=== PATIENT | male | born 1985 | race Hispanic/Latino ===

== ENCOUNTER → 2016-03-30 | Outpatient (CLI) | payer OTHER ==
--- NOTE | 2016-03-30 10:57 | REP ---
Clinical: Hammertoe deformity. Technique: AP, lateral, bilateral oblique views. Findings: The osseous structures and joint spaces are intact. Hallux valgus deformity. The There is no evidence for acute fracture or dislocation. Surrounding soft tissues are unremarkable. No subcutaneous emphysema or radiodense foreign body. Impression: No acute fracture or dislocation. Signed by Luis Mesa MD 03/30/2016 10:48 A
== END ==
LOC: M RAD 09:31
PROVIDERS: ATTEND Surgery
DX: M20.41 Other hammer toe(s) (acquired), right foot (principal); M20.11 Hallux valgus (acquired), right foot

== ENCOUNTER 2016-11-16 08:56 | Day surgery (SDC) | payer OTHER ==
[~2016-11-16] VITALS: Ht 182.9 cm; Wt 90.7 kg
[2016-11-16] MEDS ORDERED: LR 1,000 ML IV SCH (09:15)
[2016-11-16] MEDS ORDERED: LIDOCAINE 2% MDV 20 ML VIAL As Ordered ONE (11:31)
[2016-11-16] MEDS ORDERED: NEOSPORIN GU IRRIG 20 ML VIAL As Ordered ONE (11:32)
[2016-11-16] MEDS ORDERED: BACITRACIN PWD 50,000 UNITS VIAL As Ordered ONE (11:32)
[2016-11-16] MEDS ORDERED: BUPIVACAINE HCL 0.5% 30 ML VIAL As Ordered ONE (11:32)
[2016-11-16] MEDS ORDERED: dexameTHASONE 4 MG/ML 1ML VIAL (J1100) As Ordered ONE (11:32)
[2016-11-16] MEDS ORDERED: fentaNYL 100 MCG/2 ML INJECTION (J3010) As Ordered ONE (11:47)
[2016-11-16] MEDS ORDERED: MIDAZOLAM INJ 2 MG/2 ML VIAL (J2250) As Ordered ONE ×2 (11:47→12:32)
[2016-11-16] MEDS ORDERED: PROPOFOL 200 MG/20 ML VIAL As Ordered ONE ×4 (12:18→13:26)
[2016-11-16] MEDS ORDERED: LIDOCAINE 2% INJ 100 MG/5 ML SDV (FOR ANES.) As Ordered ONE (12:18)
[2016-11-16] MEDS ORDERED: KETOROLAC 60 MG/2 ML VIAL (J1885) As Ordered ONE (12:18)
[2016-11-16] MEDS ORDERED: ePHEDrine SULFATE 25 MG/5 ML(5MG/ML) SYRINGE As Ordered ONE (13:18)
[2016-11-16] MEDS ORDERED: PHENYLephrine HCL 500 MCG/5 ML (100MCG/ML) SYRINGE (J2370) As Ordered ONE (13:22)
--- NOTE | 2016-11-16 15:11 | REP ---
RIGHT FOOT: Three portable views of the right foot are performed. Metallic pin is seen extending through the phalanges of the second digit as well as phalanges of the third, fourth and fifth digits. Metallic screw is seen in distal aspect of the third and fifth metatarsals. The osseous structures appear well aligned. Signed by Simone Curry MD 11/16/2016 04:14 P
[2016-11-16 16:00] VITALS: BP 125/66
--- NOTE | 2016-11-16 17:38 | ECGEPIP ---
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
--- NOTE | 2016-11-22 13:35 | RO ---
DATE OF PROCEDURE: 11/16/2016 PREPROCEDURE DIAGNOSES: Tailor's bunion deformity right foot, long third metatarsal right foot, hammer toe deformity second toe right foot, hammer toe deformity third toe right foot, hammer toe deformity fourth toe right foot, hammer toe deformity fifth toe right foot. POSTPROCEDURE DIAGNOSES: PROCEDURE: 1. Tailor's bunionectomy with distal V osteotomy with internal screw fixation 2.5 mm x 18 mm x 1. 2. Shortening third metatarsal osteotomy internal screw fixation 2.5 mm x 14 mm x 1. 3. Proximal interphalangeal joint fusion with external wire fixation second toe right foot. 4. Proximal interphalangeal joint fusion with external wire fixation third toe right foot. 5. Proximal interphalangeal joint fusion fourth toe with external wire fixation right foot. 6. Distal interphalangeal joint arthroplasty fifth toe right foot. SURGEON: Dr. Ezekiel Hankins DPM MOTOR ROUTE CARRIER: None. ANESTHESIA: Local MAC. ESTIMATED BLOOD LOSS: Less than 5 mL. DRAINS UTILIZED: None. HARDWARE UTILIZED: Lino Dart-Fire 2.5 x 14 mm and a 2.5 x 16 mm screw and K wire 0.35 x 2 and 0.45 x 2. HEMOSTASIS: Ankle pneumatic tourniquet at 200 mmHg for 100 minutes. DESCRIPTION OF OPERATION: On 11/16/2016, this 31-year-old male was taken from his hospital room to the operating room and placed on the operating room table in the supine position. Following the induction of IV sedation and local and regional anesthesia, the right lower extremity was prepped and draped in the usual aseptic manner. Ankle pneumatic tourniquet was rapidly inflated to 200 mmHg for the purpose of intraoperative hemostasis. Esmarch bandage removed. Right lower extremity was returned to the operating room table. Sterile draping was completed and the following procedure was performed: TAILOR'S BUNIONECTOMY WITH DISTAL V OSTEOTOMY WITH INTERNAL SCREW FIXATION RIGHT FOOT: Attention was directed to the patient's fifth toe where there was noted to be a Tailor's bunion deformity. At this time, an incision was made on the lateral surface of the foot measuring approximately 5 cm. The incision was deepened to subcutaneous tissues and all coursing venous tributaries were identified, underscored, clamped, cut, ligated and electrocoagulated as necessary. A linear capsulotomy was performed in the same plane as the original skin incision. The capsule and periosteal structures were then dissected free in one continuous layer dorsally, medially and laterally thus creating a capsular periosteal type envelope. Utilizing a power saw, an osteotomy was performed of the distal metaphysis of the fifth metatarsal with a long plantar and short dorsal wing. The capital fragment was transposed approximately 40% of the width of the shaft of the fifth metatarsal and utilizing a 2.5 x 18 mm Dart-Fire cannulated screw, the osteotomy was stabilized. It was stable in all three cardinal planes. A redundant cortical spike was then osteotomized from dorsal to plantar through and through and extirpated from the wound in toto. Lateral surface was rasped to smooth contour. The wound was flushed with copious amounts of dilute bacitracin, neomycin and polymyxin B solution. Attention was then directed towards closure where the capsular structures were coapted and maintained using #2-0 Monocryl in a simple interrupted type fashion. Subcutaneous tissues were coapted and maintained using #4-0 Monocryl in simple interrupted type fashion. Skin incision coapted and maintained using #5-0 Monocryl in continuous subcuticular type fashion. Attention was then directed to the third metatarsal where the following procedure was performed: SHORTENING THIRD METATARSAL OSTEOTOMY WITH INTERNAL SCREW FIXATION 2.5 MM X 14 MM X 1 RIGHT FOOT: Attention was directed to the patient's right foot and an incision was placed over the third metatarsal neck. Incision was deepened to the subcutaneous tissues and all coursing venous tributaries were identified, underscored, clamped, cut, ligated and electrocoagulated as necessary. The long and short tendons were then split in a medial and lateral direction. Periosteal incision was placed over the third metatarsal neck and a Yonas osteotomy was performed starting at the articular cartilage of the third metatarsal paralleling the plantar surface of the foot. Capital fragment was shortened approximately 5 mm and fixated with a Dart-Fire 2.5 x 14 mm compression screw. The dorsal redundant spike was then rongeured to even contour and rasped with a hand held rasp. The wound was flushed with copious amounts of dilute bacitracin, neomycin and polymyxin B solution. The capsular structures were coapted and maintained utilizing #2-0 Monocryl in a simple interrupted type fashion. Subcutaneous tissues were coapted and maintained utilizing #4-0 Monocryl in a simple interrupted type fashion. Skin incisions were coapted and maintained utilizing #4-0 Prolene in a simple interrupted and horizontal mattress type fashion. Attention was then directed to the patient's second toe where the following procedure was performed: PROXIMAL INTERPHALANGEAL JOINT FUSION WITH EXTERNAL WIRE FIXATION 0.045 X 1 RIGHT FOOT: Attention was directed to the patient's second toe where there was noted to be hammer toe deformity. At this time, an incision was placed from the base of the second toe to just distal to the proximal interphalangeal joint. Incision was deepened to the subcutaneous tissues. A Z plasty tendon lengthening was then performed at the second toe. Utilizing a power saw, an osteotomy was performed from the level of the anatomical neck of the proximal phalanx from dorsal to plantar through and through. The base of the cartilage to the base of the middle phalanx was then osteotomized from dorsal to plantar through and through. The wound was flushed with copious amounts of dilute bacitracin, neomycin and polymyxin B solution. Utilizing a K wire, wire was driven through the middle and distal phalanx and retrograded into the proximal phalanx. Utilizing a #4-0 braided Nylon loop suture, a four stranded core Luna stitch was placed across the extensor tendon. The wound was again flushed with copious amounts of dilute bacitracin, neomycin and polymyxin B dilution. The skin was coapted and maintained with #4-0 Prolene in simple interrupted and horizontal mattress type fashion. Attention was then directed to patient's third toe of the right foot where the following procedure was performed: PROXIMAL INTERPHALANGEAL JOINT FUSION THIRD TOE RIGHT FOOT: Attention was directed to the patient's third toe of the right foot where the procedure performed on the second toe was now performed on the third toe without variation or deletion, the only exception being that of anatomical location. Attention was then directed to the fourth toe where the following procedure was performed: PROXIMAL INTERPHALANGEAL JOINT FUSION FOURTH TOE RIGHT FOOT WITH EXTERNAL WIRE FIXATION 0.035 x 1 RIGHT FOOT: Attention was directed to the patient's fourth toe of the right foot where the procedure performed on the second toe was now performed on the fourth toe with the following variation: A smaller K wire was utilized, 0.035 x 1. No other variations or deletions. Attention was then directed towards the fifth toe of the left foot where the following procedure was performed: PROXIMAL INTERPHALANGEAL JOINT ARTHROPLASTY WITH EXTERNAL WIRE FIXATION 0.035 X 1 RIGHT FOOT: Attention was directed to the patient's fifth toe of the right foot where the procedure performed on the second toe was now performed on the fifth toe with the following variation: 0.035 K wire was utilized and the cartilage on the base of the middle phalanx of the fifth toe was not debrided. No other variations or deletions. Following the completion of surgical procedure, attention was directed towards bandaging where a sterile compressive bandage was applied consisting of Adaptic, 4x4s, 4x4 splints, Florencio, Kerlix and Coban. The ankle pneumatic tourniquet was then rapidly deflated and instantaneous capillary filling time was noted to digits of 1 through 5 of the patient's right foot. The patient having apparently tolerated the surgical procedure well was taken from the operating room (OR) to the recovery room with vital signs stable and the patient afebrile for further monitoring by the anesthesia department. All surgical specimens removed during the operative procedure were sent to pathology for gross and microscopic examination. Postoperative instructions will be given upon discharge.
== END 2016-11-16 16:35 | disposition home or self-care (01) ==
LOC: M SDC 08:56
PROVIDERS: ATTEND Podiatrist
DX: M21.621 Bunionette of right foot (principal); M20.41 Other hammer toe(s) (acquired), right foot; M20.5X1 Other deformities of toe(s) (acquired), right foot
CPT/HCPCS: 28110; 28160; 28285; 28308; 73630; 88300; 93005; C1776; J0690; J1100; J1885; J2250; J2370; J3010

== ENCOUNTER → 2017-01-21 | Outpatient (CLI) | payer OTHER ==
--- NOTE | 2017-01-21 11:48 | REP ---
RIGHT FOOT SERIES: Four views. HISTORY: Right foot surgery. COMPARISON: Postop views are from November 16, 2016. FINDINGS: Metallic screws remain in place across osteotomy sites at the distal ends of the 5th and 3rd metatarsals. The pins previously noted in the 2nd through 5th phalanges have been removed. Distal osteotomies of the proximal phalanges of digits two, three and four have been performed. Alignment is normal. No bony erosive changes seen. There is a mild hallux valgus. Mild soft tissue swelling is seen lateral to the 5th MTP joint. No other abnormality. Signed by Sai Tran MD 01/21/2017 12:39 P
== END ==
LOC: M RAD 09:30
PROVIDERS: ATTEND Surgery
DX: Z48.89 Encounter for other specified surgical aftercare (principal)